=== PATIENT | female | born 1975 ===

== ENCOUNTER 2024-02-26 01:15 | Inpatient (IN) | payer OTHER ==
[2024-02-27] MEDS ORDERED: SODIUM CHLORIDE 0.9% 50 ML BAG ONE (01:15)
[2024-02-27] MEDS ORDERED: cefOXitin 2 GM VIAL ONE (01:15)
[2024-02-27] MEDS ORDERED: ROCURONIUM 10 MG/ML (5 ML VIAL) IV ONE (02:10)
[2024-02-27] MEDS ORDERED: NEOSTIGMINE 1 MG/ML 10 ML VIAL ONE (02:10)
[2024-02-27] MEDS ORDERED: GLYCOPYRROLATE 0.2 MG/ML 2 ML VIAL ONE (02:10)
[2024-02-27] MEDS ORDERED: ONDANSETRON 4 MG/2 ML VIAL ONE ×3 (02:10→16:42)
[2024-02-27] MEDS ORDERED: PROPOFOL 10 MG/ML 20 ML VIAL IV ONE (02:10)
[2024-02-27] MEDS ORDERED: SUCCINYLCHOLINE CHLORIDE 200 MG/10 ML VIAL IV ONE (02:10)
[2024-02-27] MEDS ORDERED: fentaNYL (PF) 50 MCG/ML 2 ML AMP ONE (02:10)
[2024-02-27] MEDS ORDERED: MIDAZOLAM 2 MG/2 ML VIAL ONE (02:10)
[2024-02-27] MEDS ORDERED: KETOROLAC 15 MG/ML 1 ML VIAL ONE (02:10)
[2024-02-27] MEDS ORDERED: BUPIVACAINE (PF) 0.25% 10 ML VIAL ONE (02:30)
[2024-02-27] MEDS ORDERED: PIPERACILLIN-TAZOBACTAM 3.375 GM VIAL ONE ×2 (08:49→14:16)
[2024-02-27] MEDS ORDERED: HEPARIN SODIUM,PORCINE 5,000 UNIT/ML 1 ML VIAL ONE ×2 (08:49→16:02)
[2024-02-27] MEDS ORDERED: HYDROcodone/APAP 5-325MG 1 EACH TAB ONE ×2 (11:33→18:18)
[2024-02-27] MEDS ORDERED: MORPHINE SULFATE 2 MG/ML SYRINGE ONE ×3 (12:15→21:07)
[2024-02-27] MEDS ORDERED: HYDROmorphone 1 MG/ML 1 ML SYRINGE ONE (21:26)
[2024-02-27] MEDS ORDERED: SODIUM CHLORIDE 0.9% 100 ML BAG IV ONE (23:59)
[2024-02-28] MEDS ORDERED: HEPARIN SODIUM,PORCINE 5,000 UNIT/ML 1 ML VIAL ONE ×3 (00:55→16:30)
[2024-02-28] MEDS ORDERED: PIPERACILLIN-TAZOBACTAM 3.375 GM VIAL ONE ×4 (00:56→20:29)
[2024-02-28] MEDS ORDERED: MORPHINE SULFATE 2 MG/ML SYRINGE ONE ×5 (01:02→22:26)
[2024-02-28] MEDS ORDERED: HYDROcodone/APAP 5-325MG 1 EACH TAB ONE (04:27)
[2024-02-28] MEDS ORDERED: ONDANSETRON 4 MG/2 ML VIAL ONE (13:36)
[2024-02-28] MEDS ORDERED: SODIUM CHLORIDE 0.9% 100 ML BAG IV ONE ×2 (23:59)
[2024-02-29] MEDS ORDERED: HEPARIN SODIUM,PORCINE 5,000 UNIT/ML 1 ML VIAL ONE ×2 (00:03→08:33)
[2024-02-29] MEDS ORDERED: MORPHINE SULFATE 2 MG/ML SYRINGE ONE (02:17)
[2024-02-29] MEDS ORDERED: PIPERACILLIN-TAZOBACTAM 3.375 GM VIAL ONE ×2 (02:17→08:34)
[2024-02-29] MEDS ORDERED: HYDROcodone/APAP 5-325MG 1 EACH TAB ONE ×3 (04:43→17:27)
[2024-03-01] MEDS ORDERED: ESCITALOPRAM 20 MG TAB ONE (09:03)
[2024-03-01] MEDS ORDERED: PANTOPRAZOLE 40 MG TABLET PO ONE (09:03)
[2024-03-01] MEDS ORDERED: HEPARIN SODIUM,PORCINE 5,000 UNIT/ML 1 ML VIAL ONE (09:03)
[2024-03-01] MEDS ORDERED: LACTULOSE 20 GM/30 ML CUP ONE (09:03)
[2024-03-01] MEDS ORDERED: amLODIPine 5 MG TAB ONE (09:03)
[2024-03-01] MEDS ORDERED: POTASSIUM CHLORIDE ER 10 MEQ TAB.ER.PRT PO ONE (09:03)
[2024-03-01] MEDS ORDERED: NICOTINE 14MG/24HR PATCH TRANSDERM ONE (09:03)
[2024-03-01] MEDS ORDERED: predniSONE 20 MG TAB ONE (09:04)
[2024-03-01] MEDS ORDERED: FUROSEMIDE 40 MG TAB ONE (09:04)
--- NOTE | 2024-05-28 06:27 | P.OP ---
Date of Procedure: 02/27/24 Preoperative Diagnosis: Acute appendicitis Postoperative Diagnosis: Acute appendicitis Procedure(s) Performed: Laparoscopic appendectomy Anesthesia: ENRIQUE Surgeon: Keven Melendez Pathology: other (Appendix) Condition: stable Disposition: floor Indications for Procedure: 48-year-old female presented to the emergency department with complaint of abdominal pain. On workup she is found to have acute appendicitis. Patient was started on IV antibiotics and plan for laparoscopic appendectomy. Risks, bene fits and alternatives were provided to the patient. All questions answered prior to procedure. Consent was provided. Operative Findings: Injected, inflamed appendix with possibility of ruptured Description of Procedure: Patient was brought to the operating suite and placed in supine position on the operating table. Sedation was provided by anesthesia and the patient underwent endotracheal intubation. Patient's abdomen was prepped and draped in regular sterile fashion. A supraumbilical incision was made and dissection was carried to the fascia. The fascia was incised and 12 mm trocar was placed. Pneumoperitoneum was achieved. The patient was placed in appropriate position and a 5 mm port was placed in the suprapubic and left lower quadrant region. The appendix was then visualized and was noted to be injected, inflamed and dilated. Surrounding purulent material was noted. A window was created between the appendix and the mesoappendix and LigaSure device was used to ligate the appendix from the mesentery. The base of the appendix was clearly visualized and a stapler was fired across the base. Hemostasis was noted to be maintained with no evidence of leakage. The appendix was then placed in an Endo Catch bag and removed from the abdomen from the supraumbilical incision site. Irrigation was placed in the right lower quadrant in the pelvis and suctioned. The supraumbilical fascial incision site was then closed under direct visualization using an 0 Vicryl suture and Nelson-Shira device. Pneumoperitoneum was then released. All ports removed from the abdomen. All incision sites were closed with 4-0 Vicryl subcuticular suture. Sterile dressing was applied. The patient was awakened in the operating suite and taken to postanesthesia care unit in stable condition.
== END 2024-02-29 17:47 | disposition home or self-care (01) | DRG 399 ==
LOC: UNDOADMIN 01:15 → 4SSUR 01:15 → UNDOADMIN 02-27 01:15 → 4SSUR 02-27 01:15 → UNDODISIN 02-29 17:47
PROVIDERS: ADMIT Surgery; ATTEND Surgery
PROC: 0DTJ4ZZ Resection of Appendix, Percutaneous Endoscopic Approach (ICD-10-PCS; principal; 2024-02-27)
DX: K35.32 Acute appendicitis with perforation, localized peritonitis, and gangrene, without abscess (principal); F17.200 Nicotine dependence, unspecified, uncomplicated
CPT/HCPCS: 88304; 96374; 99285